=== PATIENT | male | born 1985 ===

== ENCOUNTER 2017-12-24 09:18 | Inpatient (IN) | payer MEDICAID, OTHER ==
[2017-12-24 10:02] LABS: BASO % 0.4 % (0.0-2.0); EOS # 0.2 K/uL (0.0-0.7); EOS % 3.7 % (0.0-4.0); HEMOGLOBIN 13.7 g/dL (12.0-18.0); LYMPH % 17.9 % (20.0-40.0); MEAN CELL VOLUME 83.5 fL (80.0-94.0); MEAN CORPUSCULAR HEMOGLOBIN 28.3 pg (27.0-31.0); MEAN CORPUSCULAR HGB CONC 33.9 g/dL (33.0-37.0); MEAN PLATELET VOLUME 8.6 fL (7.2-11.7); MONO # 0.3 K/uL (0.0-0.8); NEUT # 3.9 K/uL (1.8-7.0); NRBC % 0.1 % (0.0-2.0); RBC 4.84 Mil/uL (4.40-5.90); RED CELL DISTRIBUTION WIDTH 13.2 % (11.5-14.5); WHITE BLOOD COUNT 5.4 K/uL (4.8-10.8)
[2017-12-24 10:18] LABS: ALB/GLOB RATIO 1.7 (1.0-2.1); ALBUMIN 4.6 g/dL (3.5-5.0); ALT/SGPT 28 U/L (21-72); AST/SGOT 20 U/L (17-59); BLOOD UREA NITROGEN 13 mg/dL (9-20); CALCIUM 9.4 mg/dl (8.6-10.4); GFR AFRICAN-AMERICAN > 60; GFR NON-AFRICAN AMERICAN > 60
[2017-12-24 10:22] LABS: SQUAMOUS EPITHIAL < 1 /hpf (0-5); URINE BACTERIA RARE (<OCC); URINE BILIRUBIN NEGATIVE (NEGATIVE); URINE BLOOD NEGATIVE (NEGATIVE); URINE CLARITY Clear (Clear); URINE COLOR Yellow (YELLOW); URINE GLUCOSE (UA) NORMAL (Normal); URINE LEUKOCYTE ESTERASE NEG Leu/uL (Negative); URINE PROTEIN 1+ mg/dL (NEGATIVE); URINE UROBILINOGEN NORMAL mg/dL (0.2-1.0)
[2017-12-24 10:41] LABS: BARBITURATES, UR NEGATIVE (NEGATIVE); BENZODIAZEPINES, UR NEGATIVE (NEGATIVE); OPIATES, UR NEGATIVE (NEGATIVE); PHENCYCLIDINE, UR NEGATIVE (NEGATIVE)
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
--- NOTE | 2017-12-24 13:21 | PCM.BM ---
<Torrie Ag - Last Filed: 12/24/17 13:20> Treatment Plan Problems - Problems identified on initial assessmt Anger Management Date Initiated: 12/24/17 Time Initiated: 13:20 Assessment reference: NA Status: Active Non compliance with medication Date Initiated: 12/24/17 Time Initiated: 13:20 Assessment reference: NA Status: Active Treatment assets and liabiliti Patient Assests: ADL independent, good support system, negotiates basic needs Patient Liabilities: relationship conflicts - Milieu Protocol Maintain good personal hygiene: daily Encourage regular showers, daily Remind patient to perform daily oral care, daily Assist patient to perform ADL's Maintain personal safety: every shift Educate patient to report safety concerns to staff, every shift Monitor environment for contraband/sharps Medication safety: Monitor for expected outcome, potential side effects: every shift, Assess barriers to learning: every shift, Assess readiness for medication education: every shift <Roge Spencer - Last Filed: 12/26/17 11:10> - Diagnosis (1) Schizoaffective disorder Status: Acute Interventions: 12/26/17 11:10 * Assess/adjust medications daily and /or as needed * See patient on an individual basis 7x/week to assess status of hallucinations * Discuss risks, benefits, side effects and alternatives of medications * <My Rowell - Last Filed: 12/26/17 14:39> Family Contact Family involvement: Famliy/SO not involved - Goals for Treatment Patient goals for treatment: "I want to go home." Discharge/Continuing Care - Education Needs Education Needs: Patient Medication, Patient Coping Skills - Discharge Discharge Criteria: Tolerates medication w/o severe side effects, Reduction of target symptoms Discharge to:: Home, With Family - Treatment Team Participation Discussed with Family/SO: No Was Patient/Family/SO present at Treatment Team Meeting: Yes
[2017-12-24] MEDS: Divalproex 500 mg DR Tab PO SCH (17:53)
[2017-12-25] MEDS: Divalproex 500 mg DR Tab PO SCH (09:29)
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
[2017-12-25] MEDS ORDERED: Lithium Carbonate ER Tab 450 MG PO SCH ×2 (12:00→13:00)
[2017-12-25] MEDS: Lithium Carbonate ER Tab 450 MG PO SCH ×2 (13:44→22:07)
--- NOTE | 2017-12-26 07:25 | PCM.RRT ---
SKI TOPPER Nurses Assessment - Situation Date: 12/26/17 I.Reason for SKI TOPPER - A) Acute Change in Patient: (Select all that apply): Staff member or family is worried about patient - Neurological Status (Select all that apply): Alert, Responsive, Oriented, Verbal, Follows Commands. absent: Disoriented, Confused, Lethargic, Aggressive - Respiratory Oxygen Delivery Method: Room Air - Constitutional Appears: Non-toxic, No Acute Distress - Head Head Exam: ATRAUMATIC, NORMOCEPHALIC - Eyes Eye Exam: EOMI, Normal appearance - Respiratory Exam Respiratory Exam: Clear to Ausculation Bilateral, NORMAL BREATHING PATTERN. absent: Accessory Muscle Use, Rales, Rhonchi, Wheezes, Respiratory Distress - Cardiovascular Exam Cardiovascular Exam: REGULAR RHYTHM, +S1, +S2 - GI/Abdominal Exam GI & Abdominal Exam: Soft. absent: Distended, Firm, Guarding, Rigid, Tenderness - Neurological Exam Neurological Exam: Alert, Awake, CN II-XII Intact, Oriented x3 Plan - Assessment of Findings&Treatment Plan SKI TOPPER was called on patient when nurse noticed that patient appeared pale in color while waking out of the bathroom. Patient stated that he felt dizzy and weak. Nursing staff helped patient down to the floor. Initial vitals were BP 84/ 50, HR 61bpm, o2sat 100%RA with a blood sugar of 78. Patient stated he was feeling better while laying down and was transitioned to a seat position. He was then given multiple cups of orange juice. Patient reports decreased fluid intake since being admitted on 12/24 and appears dry on examination. He attempted to stand but felt weak and dizzy and was placed back to a seat position again. After a few minutes, he was helped to his feet and walked to his bed with assistance. Patient's symptoms improved and was instructed to have breakfast in bed and drink increased amounts of fluids. Patient also reports that he does not take any medicine when he is at home. He was started on Abilify and Trazodone, both of which he took last night. These symptoms may be a side effect of his medications. Abilify was placed on hold as patient stated he has similar symptoms the last time he took this medication approximately 3 years ago. Trazodone was discontinued as the combination of Abilify and the large dose of Trazodone may have been too much for this patient. If need to restart, recommend starting at a lower dose. Bassam Waldron PGY2
[2017-12-26] MEDS: Lithium Carbonate ER Tab 450 MG PO SCH ×2 (10:02→21:40)
--- NOTE | 2017-12-26 11:09 | PCM.PYCHPN ---
Psychiatric Progress Note - Psychiatric Progress Note Patient seen today, length of contact: 15 min Patient Chief Complaint: "I feel groggy" Problems Identified/Issues Discussed: Patient seen and evaluated, chart reviewed and discussed with the nurse. Pt remained disorganized and internally preoccupied. He appeared delusional and paranoid, and still pacing back and forth in the hallways. He remained isolated and withdrawn, and confined to his room. Patient is compliant with medications and denies any side effects. Symptoms are improving but pt needs more time to stabilize. Support and psychoeducation given. Medication Change: No Medical Record Reviewed: Yes Mental Status Examination - Cognitive Function Orientation: Person, Place, Situation, Time Memory: Intact Attention: WNL Concentration: Poor Association: Loose Fund of Knowledge: Poor - Mood Mood: Depressed, Anxious - Affect Affect: Constricted - Speech Speech: Appropriate - Formal Thought Process Formal Thought Process: Delusions, Paranoia, Loosening of associations - Suicidal Ideation Suicidal Ideation: No - Homicidal Ideation Homicidal Ideation: No Goal/Treatment Plan - Goal/Treatment Plan Need for Continued Stay: Severe depression anxiety, Severe functional impairment Progress Toward Problem(s) and Goals/Treatment Plan: Support and psychoeducation given, CBT and ME used briefly Abilify 10 mg PO Prolixin 5mg PO BID Haldol 5 mg PO Q4 PRN Atarax 50 mg PO Q6 PRN [place] 450 mg PO Q12 No new symptoms reported, improving slowly and needs more time No SEs from medications, risks discussed. After care discussed - Smoking Cessation Smoking Cessation Initiated: No
[2017-12-26 15:04] LABS: FREE T4 0.95 ng/dL (0.78-2.19)
[2017-12-26] MEDS ORDERED: Pneumococcal 23-Valent Vaccine IM ONE (18:00)
[2017-12-27] MEDS: Lithium Carbonate ER Tab 450 MG PO SCH ×2 (09:38→21:46)
--- NOTE | 2017-12-27 14:32 | PCM.PYCHPN ---
Psychiatric Progress Note - Psychiatric Progress Note Patient seen today, length of contact: 15 min Patient Chief Complaint: "I feel less tired" Problems Identified/Issues Discussed: Patient seen and evaluated, chart reviewed and discussed with the nurse. Pt appeared more organized and less internally preoccupied. He appeared less delusional and paranoid than before. He is still pacing back and forth in the hallways. He remained isolated and withdrawn, and confined to his room. Patient is compliant with medications and denies any side effects. Symptoms are improving but pt needs more time to stabilize. Support and psychoeducation given. Medication Change: No Medical Record Reviewed: Yes Mental Status Examination - Cognitive Function Orientation: Person, Place, Situation, Time Memory: Intact Attention: WNL Concentration: Poor Association: Loose Fund of Knowledge: Poor - Mood Mood: Depressed, Anxious - Affect Affect: Constricted - Speech Speech: Appropriate - Formal Thought Process Formal Thought Process: Delusions, Paranoia, Loosening of associations - Suicidal Ideation Suicidal Ideation: No - Homicidal Ideation Homicidal Ideation: No Goal/Treatment Plan - Goal/Treatment Plan Need for Continued Stay: Severe depression anxiety, Severe functional impairment Progress Toward Problem(s) and Goals/Treatment Plan: Support and psychoeducation given, CBT and [place] used briefly Abilify 10 mg PO Prolixin 5mg PO BID Haldol 5 mg PO Q4 PRN Atarax 50 mg PO Q6 PRN [place] 450 mg PO Q12 No new symptoms reported, improving slowly and needs more time No SEs from medications, risks discussed. After care discussed - Smoking Cessation Smoking Cessation Initiated: No
[2017-12-28] MEDS: Lithium Carbonate ER Tab 450 MG PO SCH ×2 (10:07→21:29)
--- NOTE | 2017-12-28 10:33 | PCM.PYCHPN ---
Psychiatric Progress Note - Psychiatric Progress Note Patient seen today, length of contact: 15 min Patient Chief Complaint: "I feel little better" Problems Identified/Issues Discussed: Patient seen and evaluated, chart reviewed and discussed with the nurse. As per the staff he appears more organized than before. Pt appeared more organized and less delusional and paranoid than before. He is still pacing back and forth in the hallways. He remained isolated and withdrawn, and confined to his room. Patient is compliant with medications and denies any side effects. Symptoms are improving but pt needs more time to stabilize. Support and psychoeducation given. Medication Change: No Medical Record Reviewed: Yes Mental Status Examination - Cognitive Function Orientation: Person, Place, Situation, Time Memory: Intact Attention: WNL Concentration: Poor Association: Loose Fund of Knowledge: WNL - Mood Mood: Depressed - Affect Affect: Constricted - Speech Speech: Appropriate - Formal Thought Process Formal Thought Process: Delusions, Paranoia, Loosening of associations - Suicidal Ideation Suicidal Ideation: No - Homicidal Ideation Homicidal Ideation: No Goal/Treatment Plan - Goal/Treatment Plan Need for Continued Stay: Severe depression anxiety, Severe functional impairment Progress Toward Problem(s) and Goals/Treatment Plan: Support and psychoeducation given, CBT and [place] used briefly Abilify 10 mg PO Prolixin 10 mg PO BID Haldol 5 mg PO Q4 PRN Atarax 50 mg PO Q6 PRN [place] 450 mg PO Q12 No new symptoms reported, improving slowly and needs more time No SEs from medications, risks discussed. After care discussed - Smoking Cessation Smoking Cessation Initiated: No
[2017-12-29 06:54] VITALS: O2SAT 100
[2017-12-29] MEDS: Lithium Carbonate ER Tab 450 MG PO SCH ×2 (10:33→21:22)
[2017-12-30] MEDS: Lithium Carbonate ER Tab 450 MG PO SCH ×2 (09:35→21:58)
[2017-12-31 06:36] VITALS: RESP 18
[2017-12-31] MEDS: Lithium Carbonate ER Tab 450 MG PO SCH ×2 (09:25→21:16)
--- NOTE | 2017-12-31 13:33 | PCM.PYCHPN ---
Psychiatric Progress Note - Psychiatric Progress Note Patient seen today, length of contact: 15 min Patient Chief Complaint: "I feel little better" Problems Identified/Issues Discussed: Patient seen and evaluated, chart reviewed and discussed with the nurse. Today, he appears more organized than before. He reports improvement in his mood and paranoia. He is still pacing back and forth in the hallways. He remained isolated and withdrawn, and confined to his room. Patient is compliant with medications and denies any side effects. Symptoms are improving but pt needs more time to stabilize. Support and psychoeducation given. Medication Change: No Medical Record Reviewed: Yes Mental Status Examination - Cognitive Function Orientation: Person, Place, Situation, Time Memory: Intact Attention: WNL Concentration: Poor Association: Loose Fund of Knowledge: WNL - Mood Mood: Depressed - Affect Affect: Constricted - Speech Speech: Soft - Formal Thought Process Formal Thought Process: Loosening of associations - Suicidal Ideation Suicidal Ideation: No - Homicidal Ideation Homicidal Ideation: No Goal/Treatment Plan - Goal/Treatment Plan Need for Continued Stay: Severe depression anxiety, Severe functional impairment Progress Toward Problem(s) and Goals/Treatment Plan: Support and psychoeducation given, CBT and MD used briefly Abilify 10 mg PO Prolixin 10 mg PO BID Haldol 5 mg PO Q4 PRN Atarax 50 mg PO Q6 PRN [place] 450 mg PO Q12 No new symptoms reported, improving slowly and needs more time No SEs from medications, risks discussed. After care discussed - Smoking Cessation Smoking Cessation Initiated: No
--- NOTE | 2017-12-31 23:19 | PCM.PYCHPN ---
Psychiatric Progress Note - Psychiatric Progress Note Patient seen today, length of contact: 15 min Patient Chief Complaint: "I'm feeling better." Problems Identified/Issues Discussed: The pt is seen, chart reviewed, case discussed with staff. Pt stated that he is feeling better. He reported improvement in his manic symptoms including anger issues, irritability. He reported improvement in his AH. No new symptoms reported, improving slowly and needs more time. No SEs from medications, risks discussed. Support given, CBT and NC used briefly. After care discussed Medication Change: No Medical Record Reviewed: Yes Mental Status Examination - Cognitive Function Orientation: Person, Place, Situation, Time Memory: Intact Attention: WNL Concentration: Poor Association: Loose Fund of Knowledge: WNL Decription of patient's judgement and insights: improving/improving - Mood Mood: Depressed - Affect Affect: Constricted - Speech Speech: Soft - Formal Thought Process Formal Thought Process: Loosening of associations - Suicidal Ideation Suicidal Ideation: No Plan: denied - Homicidal Ideation Homicidal Ideation: No Plan: denied Goal/Treatment Plan - Goal/Treatment Plan Need for Continued Stay: Severe depression anxiety, Severe functional impairment Progress Toward Problem(s) and Goals/Treatment Plan: Continue medications Support and psychoeducation daily Attend groups and activities daily After care planning by - Smoking Cessation Smoking Cessation Initiated: Yes
[2018-01-01 06:26] VITALS: BP 105/68; PULSE 64; TEMP 98.5
[2018-01-01] MEDS: Lithium Carbonate ER Tab 450 MG PO SCH (09:22)
--- NOTE | 2018-01-01 11:56 | PCM.PYCHDC ---
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 The patient admits to having a mood disorder but he has been noncompliant with medications. He was used to be on lithium but he stopped. Recently, he was getting more easily agitated and he states his family triggers him. He gave some vague examples where he was reportedly triggered. He reports that he held himself until he got home and then he broke his TV and a glass table. He was brought to hospital for admission when his mother called 911. He denies drug or alcohol use. Past psych history: His first admission was in 2013 and he had 7 or 8 admissions since then. No suicide attempts diagnosed with bipolar disorder. Family psych history: Aunt and a cousin had schizophrenia and another around his depression Medical history: Denies Consultations:: List each consultation separately and include: 1. Reason for request. 2. Findings. 3. Follow-up Summary of Hospital Course include:: 1. Description of specific treatment plan utilized for patients during their course of treatmen. 2. Summarize the time- course for resolution of acute symptoms and/or regressed behaviors. 3. Describe issues identified and worked on during hospitalization. 4. Describe medication utilized. 5. Describe medical problems identified and treated. 6. Reassessment of suicide risk Summary of Hospital Course: The pt was admitted and started on Abilify for mood stabilization and psychosis and Trazodone for insomnia. However, he had low BP and [employer] CASE DETECTIVE was called. Abilfy was discontinued. Pt was initially isolated to himself and internally preoccupied. Pt was started on Prolixin and Cogentin. He responded well. He start attending the unit activities. Pt received psychotherapy, support, psychoeducation and medications. SD and CBT techniques were used. The pt was compliant with the treatment. The pt attended groups and activities, as well as milieu therapy. All the risks and benefits of medications were discussed and the patient understood and agreed. The pt improved with the treatment. Pt requested earlier discharged and he signed 48 hour notice. At the time of d/c pt denied any depressive symptoms, manic symptoms. He denied any SI, HI, intent or plan. Pt denied any perceptual disturbances. He had behavioral issues. Psychoeducation was provided to the pt to be compliant with the medication, treatment plan and f/u plan after the discharge. Pt appreciate the treatment and care which was provided to him. Family meeting was done with the pt's mother who reported that her older son is also isolated to himself and he is scared to go outside. Pt's mother has no safety concerns regarding her son. She appreciated team efforts. After care discussed with the patient and with pt's mother and encourage to compliant with the f/u plan as well as with meds. - Diagnosis (1) Schizoaffective disorder Status: Resolved - Final Diagnosis (DSM 5) Condition upon Discharge: STABLE Disposition: HOME/ ROUTINE Follow-up Treatment Plan: Continue below medications after discharge. Follow after care plan as discussed. Use relapse prevention skills Return to ER or call 911 if suicidal, homicidal or symptoms relapse. Stay away from stress, alcohol and drugs. See primary doctor once a year. Prescriptions/Medication Reconciliation: Benztropine [Cogentin] 1 mg PO DAILY 30 Days #30 tab fluPHENAZine [Prolixin] 10 mg PO BID 30 Days #60 tab [place] Carbonate ER Tab [[place] Carbonate] 450 mg PO Q12 30 Days #60 tab - Smoking Cessation Smoking Cessation Medication prescribed: Yes
== END 2018-01-01 12:13 | disposition home or self-care (01) | DRG 430 ==
LOC: C.ER 09:18 → C.5E 11:48
PROVIDERS: ADMIT Psychiatry & Neurology Psychiatry; ATTEND Psychiatry & Neurology Psychiatry
PROC: GZHZZZZ Group Psychotherapy (ICD-10-PCS; principal; 2017-12-24)
PROC: GZ58ZZZ Individual Psychotherapy, Cognitive-Behavioral (ICD-10-PCS; 2017-12-24)
PROC: GZ56ZZZ Individual Psychotherapy, Supportive (ICD-10-PCS; 2017-12-24)
DX: F25.9 Schizoaffective disorder, unspecified (principal); F31.9 Bipolar disorder, unspecified; Z91.14 Patient's other noncompliance with medication regimen; F29 Unspecified psychosis not due to a substance or known physiological condition; F41.8 Other specified anxiety disorders; G47.00 Insomnia, unspecified; F17.210 Nicotine dependence, cigarettes, uncomplicated